=== PATIENT | male | born 1950 | race Caucasian/White ===

== ENCOUNTER → 2017-05-17 | Outpatient (CLI) | payer OTHER ==
--- NOTE | 2017-05-17 21:16 | US ---
EXAMINATION TYPE: US carotid duplex BILAT DATE OF EXAM: 05/17/2017 COMPARISON: NONE CLINICAL HISTORY: R20.2 Paresthesia of skin. Trauma to face while serving in [place] 1968, facial num bness EXAM MEASUREMENTS: RIGHT: Peak Systolic Velocity (PSV) cm/sec ----- Right CCA: 60.0 ----- Right ICA: 62.2 ----- Right ECA: 151.2 ICA/CCA ratio: 1.0 RIGHT: End Diastole cm/sec ----- Right CCA: 16.0 ----- Right ICA: 13.8 ----- Right ECA: 20.4 LEFT: Peak Systolic Velocity (PSV) cm/sec ----- Left CCA: 74.3 ----- Left ICA: 68.6 ----- Left ECA: 95.2 ICA/CCA ratio: 0.9 LEFT: End Diastole cm/sec ----- Left CCA: 17.1 ----- Left ICA: 20.6 ----- Left ECA: 12.8 VERTEBRALS (direction of flow): Right Vertebral: Antegrade Left Vertebral: Antegrade Mild to moderate intimal wall changes are noted at bilateral carotid bifurcation, but PSV is wnl bila terally. IMPRESSION: 1. Jfpz-bz-lahchike atherosclerotic changes with no significant hemodynamic flow.
== END | disposition home or self-care (01) ==
LOC: RADUSWWP 14:37
PROVIDERS: ATTEND Family Medicine
DX: I65.23 Occlusion and stenosis of bilateral carotid arteries (principal)
CPT/HCPCS: 93880

== ENCOUNTER 2018-02-12 09:09 | Emergency (ER) | payer OTHER ==
[2018-02-12] MEDS ORDERED: MECLIZINE 12.5 MG TAB PO STA (09:42)
[2018-02-12] MEDS ORDERED: SODIUM CHLORIDE 0.9% 1,000 ML IV STA (09:42)
[2018-02-12] MEDS ORDERED: METOCLOPRAMIDE 5 MG/ML 2 ML VIAL IVP STA (09:43)
--- NOTE | 2018-02-12 09:46 | ED ---
Dizziness HPI - General Chief Complaint: Dizziness Stated Complaint: Dizziness Time Seen by Provider: 02/12/18 09:20 Source: patient, RN notes reviewed Mode of arrival: ambulatory Limitations: physical limitation - History of Present Illness Initial Comments: This a 67-year-old male presents emergency Department chief complaint of dizziness. Patient states he woke up with dizziness on Saturday and has progressively gotten worse. Patient states today is the worst. Patient states that on Saturday he could not even walk without pain on the all fours. He states he felt very unsteady. He states the room spins in circles. Patient states that he believes this is from getting up quickly states he was leaning on his belly and jumped up and states that this is when the dizziness started. Patient denies chest pain, headache, fever, chills, neck pain, shortness breath , focal weakness. He didn't admit to some nausea and had episodes of vomiting with the dizziness. Patient states that he has had dizziness in the past and saw Dr. Tadeo for this. They told that he may have had a stroke in the past. Patient denies any blurred vision. Patient states he feels much better just sitting still. - Related Data Home Medications Medication Instructions Recorded Confirmed Aspirin EC [Ecotrin Low Dose] 81 mg PO HS 02/12/18 02/12/18 Loratadine 10 mg PO HS 02/12/18 02/12/18 Previous Rx's Medication Instructions Recorded Meclizine [Antivert] 25 mg PO TID PRN #15 tab 02/12/18 Ondansetron Odt [Zofran Odt] 4 mg PO Q8HR PRN #10 tab 02/12/18 Allergies Allergy/AdvReac Type Severity Reaction Status Date / Time UNKNOWN ANTIBIOITIC Allergy Unknown Uncoded 02/12/18 09:31 Review of Systems ROS Statement: Those systems with pertinent positive or pertinent negative responses have been documented in the HPI. ROS Other: All systems not noted in ROS Statement are negative. Past Medical History Past Medical History: No Reported History History of Any Multi-Drug Resistant Organisms: None Reported Past Surgical History: Orthopedic Surgery Additional Past Surgical History / Comment(s): right hand sx carpal tunnel, right knee sx Past Psychological History: No Psychological Hx Reported Smoking Status: Never smoker Past Alcohol Use History: None Reported Past Drug Use History: None Reported General Exam Limitations: physical limitation General appearance: alert, in no apparent distress Head exam: Present: atraumatic, normocephalic, normal inspection Eye exam: Present: normal appearance, PERRL, EOMI. Absent: scleral icterus, conjunctival injection, periorbital swelling ENT exam: Present: normal exam, mucous membranes moist Neck exam: Present: normal inspection, full ROM. Absent: tenderness, meningismus, lymphadenopathy Respiratory exam: Present: normal lung sounds bilaterally. Absent: respiratory distress, wheezes, rales, rhonchi, stridor Cardiovascular Exam: Present: regular rate, normal rhythm, normal heart sounds. Absent: systolic murmur, diastolic murmur, rubs, gallop, clicks GI/Abdominal exam: Present: soft, normal bowel sounds. Absent: distended, tenderness, guarding, rebound, rigid Neurological exam: Present: alert, oriented X3, CN II-XII intact, reflexes normal, other (finger to nose intact bilat). Absent: motor sensory deficit Skin exam: Present: warm, dry, intact, normal color. Absent: rash Course Vital Signs 02/12/18 02/12/18 09:10 10:30 Temperature 97.8 F Pulse Rate 69 72 Respiratory 16 16 Rate Blood Pressure 188/94 167/104 O2 Sat by Pulse 98 96 Oximetry - Reevaluation(s) Reevaluation #1: 02/12/18 11:44 Patient was able to ambulate to the bathroom without difficulty, dizziness has improved. EKG Findings - EKG Comments: EKG Findings:: EKG performed at 10:06 normal sinus rhythm with a rate of 67 AR 150 QRS 94 QT/QTC 4:30/444 Medical Decision Making - Medical Decision Making 67-year-old male presented for dizziness that started on Saturday. Patient had lab work, EKG, CT which are all unremarkable. Patient does feel improved after Antivert and Reglan emergency department. Patient symptoms more consistent with vertigo. Patient we discharged on Antivert and follow-up with PCP. - Lab Data Result diagrams: 02/12/18 09:58 02/12/18 09:58 Lab Results 02/12/18 02/12/18 02/12/18 Range/Units 09:58 09:58 09:58 WBC 7.5 (3.8-10.6) k/uL RBC 4.96 (4.30-5.90) m/uL Hgb 16.0 (13.0-17.5) gm/dL Hct 46.4 (39.0-53.0) % MCV 93.6 (80.0-100.0) fL MCH 32.3 (25.0-35.0) pg MCHC 34.4 (31.0-37.0) g/dL RDW 13.2 (11.5-15.5) % Plt Count 255 (150-450) k/uL Neutrophils % 80 % Lymphocytes % 11 % Monocytes % 6 % Eosinophils % 1 % Basophils % 0 % Neutrophils # 5.9 (1.3-7.7) k/uL Lymphocytes # 0.8 L (1.0-4.8) k/uL Monocytes # 0.5 (0-1.0) k/uL Eosinophils # 0.1 (0-0.7) k/uL Basophils # 0.0 (0-0.2) k/uL PT 10.0 (9.0-12.0) sec INR 1.0 (<1.2) Sodium 141 (137-145) mmol/L Potassium 4.4 (3.5-5.1) mmol/L Chloride 102 (98-107) mmol/L Carbon Dioxide 25 (22-30) mmol/L Anion Gap 14 mmol/L BUN 12 (9-20) mg/dL Creatinine 0.82 (0.66-1.25) mg/dL Est GFR (CKD-EPI)AfAm >90 (>60 ml/min/1.73 sqM) Est GFR (CKD-EPI)NonAf >90 (>60 ml/min/1.73 sqM) Glucose 130 H (74-99) mg/dL Calcium 9.0 (8.4-10.2) mg/dL Magnesium 2.0 (1.6-2.3) mg/dL Total Bilirubin 0.7 (0.2-1.3) mg/dL AST 36 (17-59) U/L ALT 40 (21-72) U/L Alkaline Phosphatase 96 (38-126) U/L Troponin I (0.000-0.034) ng/mL Total Protein 7.5 (6.3-8.2) g/dL Albumin 4.1 (3.5-5.0) g/dL 02/12/18 Range/Units 09:58 WBC (3.8-10.6) k/uL RBC (4.30-5.90) m/uL Hgb (13.0-17.5) gm/dL Hct (39.0-53.0) % MCV (80.0-100.0) fL MCH (25.0-35.0) pg MCHC (31.0-37.0) g/dL RDW (11.5-15.5) % Plt Count (150-450) k/uL Neutrophils % % Lymphocytes % % Monocytes % % Eosinophils % % Basophils % % Neutrophils # (1.3-7.7) k/uL Lymphocytes # (1.0-4.8) k/uL Monocytes # (0-1.0) k/uL Eosinophils # (0-0.7) k/uL Basophils # (0-0.2) k/uL PT (9.0-12.0) sec INR (<1.2) Sodium (137-145) mmol/L Potassium (3.5-5.1) mmol/L Chloride (98-107) mmol/L Carbon Dioxide (22-30) mmol/L Anion Gap mmol/L BUN (9-20) mg/dL Creatinine (0.66-1.25) mg/dL Est GFR (CKD-EPI)AfAm (>60 ml/min/1.73 sqM) Est GFR (CKD-EPI)NonAf (>60 ml/min/1.73 sqM) Glucose (74-99) mg/dL Calcium (8.4-10.2) mg/dL Magnesium (1.6-2.3) mg/dL Total Bilirubin (0.2-1.3) mg/dL AST (17-59) U/L ALT (21-72) U/L Alkaline Phosphatase (38-126) U/L Troponin I <0.012 (0.000-0.034) ng/mL Total Protein (6.3-8.2) g/dL Albumin (3.5-5.0) g/dL Disposition Clinical Impression: Vertigo Disposition: HOME SELF-CARE Condition: Stable Instructions: Vertigo (ED) Additional Instructions: Please return to the Emergency Department if symptoms worsen or any other concerns. Prescriptions: Meclizine [Antivert] 25 mg PO TID PRN #15 tab PRN Reason: Vertigo Ondansetron Odt [Zofran Odt] 4 mg PO Q8HR PRN #10 tab PRN Reason: Nausea Is patient prescribed a controlled substance at d/c from ED?: No Referrals: [facility],Clinic [Primary Care Provider] - 1-2 days Time of Disposition: 11:46
[2018-02-12 10:14] LABS: Basophils % (A) 0 %; Eosinophils # (A) 0.1 k/uL (0-0.7); Eosinophils % (A) 1 %; HCT 46.4 % (39.0-53.0); Lymphocytes # (A) 0.8 k/uL (1.0-4.8); Lymphocytes % (A) 11 %; MCH 32.3 pg (25.0-35.0); MCHC 34.4 g/dL (31.0-37.0); MCV 93.6 fL (80.0-100.0); Mean Platelet Volume 6.5; Monocytes # (A) 0.5 k/uL (0-1.0); Monocytes % (A) 6 %; Neutrophils # (A) 5.9 k/uL (1.3-7.7); Neutrophils % (A) 80 %; Platelet Count 255 k/uL (150-450); RBC 4.96 m/uL (4.30-5.90); RDW 13.2 % (11.5-15.5); WBC 7.5 k/uL (3.8-10.6)
--- NOTE | 2018-02-12 10:28 | XR ---
EXAMINATION TYPE: XR chest 2V DATE OF EXAM: 02/12/2018 COMPARISON: 07/08/2013 HISTORY: Shortness of breath TECHNIQUE: Frontal and lateral views of the chest are obtained. FINDINGS: Scattered senescent parenchymal changes noted. Hyperinflation compatible with COPD. Stable granuloma right lower lobe. No evidence for infiltrate. No evidence for atelectasis. Heart size is stable. Mediastinal structures are stable and grossly unremarkable. No evidence for hilar prominence. Degenerative changes dorsal spine. IMPRESSION: 1. No evidence for acute pulmonary disease.
--- NOTE | 2018-02-12 10:32 | CT ---
EXAMINATION TYPE: CT brain wo con DATE OF EXAM: 02/12/2018 COMPARISON: NONE INDICATION: Dizziness for 3 days DLP: 1213 mGycm, Automated exposure control for dose reduction was used. CONTRAST: None CT of the brain is performed utilizing 3 mm thick sections through the posterior fossa and 3 mm thick sections through the remaining calvarium. Study is performed within 24 hours of arrival to the hosp ital. No abnormal hyperdensity is present to suggest an acute intracranial hemorrhage. No mass lesion is evident. No acute infarcts are evident. Minimal periventricular white matter hypodensity is present, likely on the basis of chronic white matter ischemic change. Ventricles and sulci are appropriate for the patient age. Paranasal sinuses and mastoid air cells within the [id number] are clear. IMPRESSIONS: 1. Very minimal chronic appearing white matter ischemic change. 2. No acute intracranial process.
[2018-02-12 10:43] LABS: ALT 40 U/L (21-72); AST 36 U/L (17-59); Albumin 4.1 g/dL (3.5-5.0); Alkaline Phosphatase 96 U/L (38-126); Anion Gap 14 mmol/L; Blood Urea Nitrogen 12 mg/dL (9-20); Carbon Dioxide 25 mmol/L (22-30); Chloride 102 mmol/L (98-107); Glucose 130 mg/dL (74-99); Potassium 4.4 mmol/L (3.5-5.1); Sodium 141 mmol/L (137-145); Total Bilirubin 0.7 mg/dL (0.2-1.3); Total Protein 7.5 g/dL (6.3-8.2)
[2018-02-12 11:59] VITALS: BP 138/84; PULSE 73; RESP 18; TEMP 97
== END 2018-02-12 11:59 | disposition home or self-care (01) ==
LOC: EC 09:09
DX: R42 Dizziness and giddiness (principal); Z79.82 Long term (current) use of aspirin; Z79.899 Other long term (current) drug therapy; Z88.1 Allergy status to other antibiotic agents
CPT/HCPCS: 36415; 93005; 80053; 83735; 84484; 85025; 85610; 71046; 70450; 99284; 96374; 96361; J2765

== ENCOUNTER → 2024-02-07 | Outpatient (CLI) | payer OTHER ==
--- NOTE | 2024-02-07 12:21 | FL ---
Exam Date: 02/07/2024 11:21 AM. Modified barium swallow for dysphagia. Consistencies administered: Various consistency of barium. Fluoro time: 1 minute 6 seconds No images were sent to PACS. Please see speech pathology report. DAP: Not reported mGym2 Gycm2
== END | disposition home or self-care (01) ==
LOC: RADFLMAIN 10:57
PROVIDERS: ATTEND Family Medicine
DX: R13.10 Dysphagia, unspecified (principal); R09.A2 Foreign body sensation, throat
CPT/HCPCS: 74230

== ENCOUNTER → 2024-03-06 | Outpatient (CLI) | payer OTHER ==
--- NOTE | 2024-03-08 21:26 | MR ---
EXAMINATION TYPE: MR cervical spine wo con DATE OF EXAM: 03/06/2024 6:46 PM CLINICAL INDICATION:Male, 74 years old with history of M54.2 CERVICALGIA; PHH, Whole body numbness COMPARISON: 07/22/2013 TECHNIQUE: Multi planar, multi sequence imaging was performed utilizing: T1-weighted, T2-weighted, an d turbo inversion recovery imaging of the cervical spine. IV Contrast: cc (none if empty) FINDINGS: Alignment: The cervical vertebral bodies have preserved heights. Subtle grade 1 anterolisthesis of C7 on T1. Bones: Osteophytes and disc space narrowing most pronounced at the C5-C7 vertebral levels. Cord: The spinal cord is unremarkable with regards to their signal intensity and morphology. Discs: Intervertebral disc signal is maintained. C2-C3: No significant disc pathology. The spinal canal is patent. No neural foraminal stenosis. C3-C4: No significant disc pathology. The spinal canal is patent. Bilateral facet and uncovertebral joint arthropathy are present with mild bilateral neural foraminal stenosis. C4-C5: A disc osteophyte complex is present with mild spinal canal stenosis. Bilateral facet and unc overtebral joint arthropathy are present with moderate bilateral neural foraminal stenosis. C5-C6: No significant disc pathology. The spinal canal is patent. Bilateral facet and uncovertebral joint arthropathy are present with severe right and moderate left neural foraminal stenosis. C6-C7: No significant disc pathology. The spinal canal is patent. Bilateral facet and uncovertebral joint arthropathy are present with severe bilateral neural foraminal stenosis. C7-T1: No significant disc pathology. The spinal canal is patent. No neural foraminal stenosis. Other: None. IMPRESSION: 1. No evidence for disc herniation or significant spinal canal stenosis. 2. Multilevel disc degeneration with associated osteoarthritic changes worse at C5-C7 with moderate l eft C5-C6, severe right C5-C6, severe bilateral C6-C7 neural foraminal stenosis. 3. Subtle grade 1 anterolisthesis of C7 on T1.
== END | disposition home or self-care (01) ==
LOC: RADMRIMAIN 17:59
PROVIDERS: ATTEND Family Medicine
DX: M48.02 Spinal stenosis, cervical region (principal); M99.71 Connective tissue and disc stenosis of intervertebral foramina of cervical region; M50.322 Other cervical disc degeneration at C5-C6 level
CPT/HCPCS: 72141

== ENCOUNTER → 2024-09-25 | Outpatient (CLI) | payer OTHER | END | disposition home or self-care (01) | LOC: LABPAT 09:23 | PROVIDERS: ATTEND Orthopaedic Surgery | DX: M50.00 Cervical disc disorder with myelopathy, unspecified cervical region (principal); M47.22 Other spondylosis with radiculopathy, cervical region | CPT/HCPCS: 86850; 86900; 86901; 87070 ==

== ENCOUNTER 2024-10-02 10:42 | Day surgery (SDC) | payer OTHER ==
--- NOTE | 2024-10-01 16:03 | P.HPOR ---
History of Present Illness H&P Date: 09/25/24 .D:Date: 09/25/24 : 09:12am .T:Title: Spine Surgery Clinical and Risk Review ATTENDING ATTESTATION: I have personally reviewed the history, imaging studies, and physical examination findings for Ibis, a 74-year-old male presenting with cervical pain and progressive neurological symptoms. The patient demonstrates significant cervical spine pathology on imaging, including moderate to severe spondylotic changes C5-C7, multilevel foraminal stenosis (severe at C5-6 and C6-7), and grade 1 anterolisthesis C7-T1. Medical Necessity: The patient presents with objective findings of cervical myelopathy and radiculopathy, evidenced by diffuse upper extremity weakness, hyperreflexia with positive Pritchett's sign, and dermatomal sensory deficits. Without surgical intervention, the patient faces high risk of progressive neurological deterioration and potential paralysis. Surgical Rationale: Based on the severity of imaging findings, progressive neurological deficits, and failed conservative management, I concur with the recommendation for C4-C7 Anterior Cervical Discectomy and Fusion. This procedure is the most appropriate surgical intervention to address the patient's multilevel pathology, decompress the neural elements, and stabilize the cervical spine. The patient has been thoroughly counseled regarding surgical risks and benefits, and demonstrates understanding of the proposed procedure. I agree with the assessment and plan as documented below. Gaurang Stovall DO ------ Ibis is a 74 yo male who is presenting for evaluation of cervical pain. It was my pleasure to have seen and examined Ibis. In our visit today we have had a chance to go over subjective complaints, physical examination findings and treatments including the natural course history without intervention and various interventional options. 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: 4-/5 bilaterally * Lower extremities: 5/5 throughout Reflexes: * Biceps: 3+ bilaterally Brachioradialis: 3+ bilaterally Triceps: 2+ bilaterally Positive Pritchett's sign bilaterally No clonus or Babinski Sensory: * C5-C7 dermatomal deficits with paresthesias in bilateral upper extremities Diminished light touch and proprioception in bilateral hands Functional: * Impaired fine motor dexterity in bilateral hands Independent ambulation with normal gait pattern Negative Romberg No balance deficits I have explained to the patient that as their condition progresses it will cause further neurological deficits and eventual paralysis. Based on the patients imaging, physical exam, and the rapid progression and disabling nature of their symptoms, at this time I recommend surgery in the form or a: C4-C7 Anterior Cervical Discectomy and Fusion. I discussed the risk and benefits of this procedure at length with Ibis. The patient agreed to considered pursuing the procedure abovementioned. Prior to surgery, she should follow up with her PCP (Cardio, ID, IM etc) for clearance. Questions were invited and answered, and the patient wishes to proceed as outlined below. ASSESSMENT: 1. 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 Grade 1 anterolisthesis C7-T1 3. Bilateral cervical radiculopathy with progressive weakness 4. Cervical myelopathy symptoms Currently, I am recommendin.C4-C7 Anterior Cervical Discectomy and Fusion 2.Follow up with PCP for surgical clearance 3.Review of surgical risks and benefits as well as an educational packet on the proposed surgical procedure. Risks: All surgical procedures come with inherent risks, including those related to positioning, anesthesia, intraoperative findings, and postoperative complications. It is important to understand that surgery does not come with any guarantee of a successful outcome as complications and adverse events are always possible. The patient was given a handout in office today discussing the surgical procedure and risks associated with the intervention, both of which were discussed with the patient. These risks include but are not limited to the following: * Experiencing same, different or even worse symptoms in back, neck, arms, or legs compared to before surgery. Requiring further surgery or other forms of treatment presently or at some time in the future at same or other levels of the intended spine surgery. On an extreme but fortunately relatively rare basis severe complication such as blindness, stroke, heart attack, temporary and/or permanent nerve injury, paralysis, coma, or may occur, sometimes without known explanation. Surgical complications may include but are not limited to risk of infection, fluid accumulation in the surgical dissection site, including a seroma or hematoma, that requires additional surgery, wound drainage, bleeding, new numbness or weakness, vision changes/loss, spinal fluid leakage, non-healing and/or infected incision, headaches, difficulty or inability to swallow, hoarseness, hemopneumothorax, pneumothorax, impotence, retrograde ejaculation, vaginal dryness; injury to nerves, spinal cord, blood vessels, lymphatics or other vital organs (i.e., bowel injury, injury to the great vessels); heterotopic bone formation; complications related to the hardware such as screws, rods, cages including misplaced hardware, device failure, instrumentation at the wrong spine level, hardware fracture/breakage, or hardware loosening; vertebral failure of the spinal column above or below the newly placed hardware; retained surgical instrumentations or devices and the need for further surgery. * Medical risks of the planned spine surgery include but are not limited to generalized Infections to the whole body or local areas outside of the surgical site (sepsis), heart attack, bleeding, anaphylaxis, meningitis, seizure, epilepsy, hearing loss, burn ley, laceration of the head or other areas of the body, bruising, hypersensitivity of the skin, bladder over distension; allergic reaction; shoulder injury related to positioning; fat, blood and air clots to other areas of the body like heart, lungs, brain; failu re of internal organs such as lungs, kidneys, liver and excessive bleeding. If blood transfusions are necessary, note that transfusions may cause intolerance reactions such as anaphylaxis or other complex reactions. Despite best efforts, the results of spine surgery might not heal in terms of bone, soft tissues such as skin, fascia, ligaments, and joints. Additionally, in order to achieve best possible results, spine surgery may be carried out beyond the initially planned levels and involve decompression, fusion including insertion of hardware at levels other than the original intended area of surgical interest change some portions of the procedure in order to ensure the best possible outcomes. With spine surgery and spinal fusion, there are different off label uses of instrumentation (devices, implants and hardware) as well as biological substances (bone morphogenic proteins, demineralized bone matrix) as well as using extra bone from allograft sources (i.e. cadaver bone) or autograft (iliac crest bone, ribs, or the spine itself). The patient has been given information about these practices and their inherent risks and benefits. We have discussed at length the impact of tobacco, smoking and nicotiene has on healing, specifically in spine surgery and fusion surgery. This can increase you risks of non-healing up to 300% some studies show. We have discussed that the patient has been tobacco/smoke/nicotiene free for the past 6 weeks and will commit to at least 6 weeks after surgery of cessation of smoking and or any tobacco or nicotiene use. They have agreed to this and contest that they have been tobacco/nicotiene free for the past 6 weeks. The patient has had a chance to review all the listed information, has been given print outs detailing this information, and has had all his/her questions answered to their satisfaction. It was my pleasure to have seen and examined Ibis. In our visit today we have had a chance to go over my understanding of our patient's current condition, the natural course history without intervention and various interventional options. Questions were invited and answered, and the patient wishes to proceed as outlined above. I have seen and examined the patient for 25 minutes and we have spent more than 50% of the time in repeat and detailed counseling about the patient's condition, its natural course history with out and as much as can be predicted with surgery and re-review of various surgical treatment options. In conclusion, Ibis requested we proceed with the above suggested surgery and are willing to accept risks and limitations of the suggested surgery as nature of the disease process and our best attempts at treatment for the condition. Thank you again for allowing us to be part of your patient's care. Please don't hesitate to contact me if you have any further questions. Past Medical History Past Medical History: No Reported History Additional Past Medical History / Comment(s): neck pain several years since injury in [place] History of Any Multi-Drug Resistant Organisms: None Reported Past Surgical History: Orthopedic Surgery Additional Past Surgical History / Comment(s): Rt. hand growth removal, Rt. knee arthroscopy, Bilat. CTR, Lt. bone spur removed, nasal surgery Past Anesthesia/Blood Transfusion Reactions: No Reported Reaction Smoking Status: Never smoker - Past Family History Brother(s) Family Medical History: Diabetes Mellitus, Dialysis Sister(s) Additional Family Medical History / Comment(s): 3 sisters have (1 in 40's, 2 in 60's) Medications and Allergies Home Medications Medication Instructions Recorded Confirmed Type Aspirin EC [Ecotrin Low Dose] 81 mg PO DAILY 02/12/18 09/29/24 History Loratadine 10 mg PO HS 02/12/18 09/29/24 History Alpha Lipoic Acid 200 mg PO DAILY 09/29/24 09/29/24 History Calcium Carb/Mag Ox/Zinc Sulf 1 tab PO DAILY 09/29/24 09/29/24 History [Mtf-Jui-Rzvf 334-134-5 mg Tab] Cholecalciferol [Vitamin D3 (25 1 tab PO DAILY 09/29/24 09/29/24 History Mcg = 1000 Iu)] Cyanocobalamin (Vitamin B-12) 1 tab PO DAILY 09/29/24 09/29/24 History [Vitamin B-12] Allergies Allergy/AdvReac Type Severity Reaction Status Date / Time UNKNOWN ANTIBIOITIC Allergy Unknown Uncoded 09/29/24 12:06 Physical Examination Osteopathic Statement: *. No significant issues noted on an osteopathic structural exam other than those noted in the History and Physical/Consult.
[~2024-10-02 10:42] MED LIST: HYDROmorphone 0.5 MG/0.5 ML SYRINGE IVP PRN; MIDAZOLAM 2 MG/2 ML VIAL IV PRN; TRANEXAMIC 1,000 MG/100ML-NACL 1,000 MG in SALINE 1 100ML.BAG IVPB PRN
[2024-10-02] MEDS: ACETAMINOPHEN TAB 500 MG TAB PO PRN (11:36)
[2024-10-02] MEDS: GABAPENTIN 300 MG CAP PO PRN (11:36)
[2024-10-02] MEDS: LACTATED RINGERS 1,000 ML IV SCH (11:36)
[2024-10-02] MEDS: ONDANSETRON 4 MG/2 ML VIAL IVP PRN (11:37)
[2024-10-02] MEDS: DEXAMETHASONE SOD PHOSPHATE 4 MG/ML 1 ML VIAL IVP STA (11:38)
[2024-10-02] MEDS: IV FLUID CONTINUATION 1,000 ML IV ONE ×2 (11:41→18:17)
--- NOTE | 2024-10-02 15:45 | FL ---
EXAMINATION TYPE: FL guidance operating room, XR cervical spine limited DATE OF EXAM: 10/02/2024 CLINICAL HISTORY: Neck pain. TECHNIQUE: Fluoroscopy. Intraoperative limited views cervical spine. COMPARISON: Outside cervical spine x-ray June 22, 2024. FINDINGS: Fluoroscopic guidance was provided during cervical spine surgical procedure performed by Anna Marie Stovall. A total of 30.7 seconds of fluoroscopic time was utilized during the procedure and 8 spot images was acquired. Total dose area product (DAP) in uGy*m?, mGy*cm? (or similar: 0.9830. Intraoperative images acquired show placement of fusion devices anteriorly at C4-C5, C5-C6, and C6-C7 levels. IMPRESSION: As Above. [facility], , 10/02/2024 3:43 PM
[2024-10-02] MEDS ORDERED: MAGNESIUM HYDROXIDE 2,400 MG/30 ML CUP PO PRN (15:54)
[2024-10-02] MEDS ORDERED: CYCLOBENZAPRINE 5 MG TAB PO PRN (15:54)
[2024-10-02] MEDS ORDERED: HYDROcodone/APAP 5-325MG 1 EACH TAB PO PRN (15:54)
[2024-10-02] MEDS ORDERED: HYDROmorphone 1 MG/ML 1 ML SYRINGE IVP PRN (15:54)
[2024-10-02] MEDS ORDERED: SENNOSIDES-DOCUSATE SODIUM 1 EACH TAB PO PRN (15:54)
[2024-10-02] MEDS ORDERED: HYDROcodone/APAP 10-325MG 1 EACH TAB PO PRN (15:54)
[2024-10-02] MEDS ORDERED: ONDANSETRON 4 MG/2 ML VIAL IVP PRN (15:54)
[2024-10-02] MEDS ORDERED: HYDROmorphone 0.5 MG/0.5 ML SYRINGE IVP PRN (15:54)
[2024-10-02] MEDS: PHENYLEPHRINE-0.9% NACL SYG 1,000 MCG/10 ML SYRINGE IVP STA (16:03)
--- NOTE | 2024-10-02 16:05 | P.OP ---
Date of Procedure: 10/02/24 Preoperative Diagnosis: 1. 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 UE RADICULOPATHY 3. UE WEAKNESS 4. NECK PAIN Postoperative Diagnosis: 1. 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 UE RADICULOPATHY 3. UE WEAKNESS 4. NECK PAIN Procedure(s) Performed: 1. C4-5 ANTERIOR CERVICAL ARTHRODESIS 2. C5-6 ANTERIOR CERVICAL ARTHRODESIS 3. C6-7 ANTERIOR CERVICAL ARTHRODESIS 4. C4-7 ANTERIOR CERVICAL INSTRUMENTATION 5. C4-5, C5-6, C6-7 INSERTION OF BIOMECHANICAL DEVICES, CAGES x3 USE OF IONM USE OF IO MICROSCOPE Implants: -BAYRON SECURE C -14, 12, 16MM SCREW PLATE -MAGNATOS, AUTOGRAFT Anesthesia: GETA Surgeon: Gaurang Stovall Exercise Instruct #1: Silvino Hernandez (WAS PRESENT AND ASSISTED WITH ALL ASPECTS OF THE CASE FROM POSITION TO DRESSING PLACEMENT) Estimated Blood Loss (ml): 50 IV fluids (ml): 1,200 Urine output (ml): 250 Pathology: none sent Condition: stable Disposition: PACU Indications for Procedure: Ibis is a 74 yo male who is presenting for evaluation of cervical pain. It was my pleasure to have seen and examined Ibis. In our visit today we have had a chance to go over subjective complaints, physical examination findings and treatments including the natural course history without intervention and various interventional options. The patients eecent cervical X-rays and MRI reviewed, showing: - Moderate to severe spondylotic changes C5-C7 - Multilevel foraminal stenosis, severe at C5-6 and C6-7 - Grade 1 anterolisthesis C7-T1 - Significant disc height loss C4-T1 -Severe central stenosis C4-7 -Facet arthrosis with ligamental stenosis and degenerative HNP C4-7 On physical exam Ibis demonstrates: Motor Strength: * Upper extremities show diffuse weakness (4/4- throughout) * Shoulder abduction: 4/5 bilaterally Biceps/Triceps: 4/5 bilaterally Wrist extension: 4-/5 bilaterally Hand intrinsics and carry out clerk: 4-/5 bilaterally * Lower extremities: 5/5 throughout Reflexes: * Biceps: 3+ bilaterally Brachioradialis: 3+ bilaterally Triceps: 2+ bilaterally Positive Pritchett's sign bilaterally No clonus or Babinski Sensory: * C5-C7 dermatomal deficits with paresthesias in bilateral upper extremities Diminished light touch and proprioception in bilateral hands Functional: * Impaired fine motor dexterity in bilateral hands Independent ambulation with normal gait pattern Negative Romberg No balance deficits I have explained to the patient that as their condition progresses it will cause further neurological deficits and eventual paralysis. Based on the patients imaging, physical exam, and the rapid progression and disabling nature of their symptoms, at this time I recommend surgery in the form or a: C4-C7 Anterior Cervical Discectomy and Fusion. I discussed the risk and benefits of this procedure at length with Ibis. The patient agreed to considered pursuing the procedure abovementioned. Prior to surgery, she should follow up with her PCP (Cardio, ID, IM etc) for clearance. Questions were invited and answered, and the patient wishes to proceed as outlined below. ASSESSMENT: 1. 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 Grade 1 anterolisthesis C7-T1 3. Bilateral cervical radiculopathy with progressive weakness 4. Cervical myelopathy symptoms Currently, I am recommendin.C4-C7 Anterior Cervical Discectomy and Fusion Description of Procedure: C4-7 ACDF The patient was seen and examined in the preoperative area. All preoperative protocols were followed. Informed consent was obtained, risks and benefits of the procedure were discussed at length. Risks including bleeding infection emma ge to the surrounding tissue and risk of reoperation were discussed with the patient. Risk of anesthesia up to and including was discussed with the patient. These are outlined in the risk review. They were willing to accept these risks and all the risks of surgery. The patient was given a weight-based dose of antibiotics in the form of 2 g Ancef. The patient was seen and evaluated by the anesthesia team who deemed them fit for surgery. The site was marked, the patient was willing to proceed with the procedure. The patient was transferred to the operative suite by the Department of anesthesia. They were then drifted off to sleep by the department anesthesia and GETA was performed. The patient tolerated this well. Rodríguez catheter was placed by nursing staff, a-traumatically. Once confirmation of lines and ventilation the patient was transferred to a Supine Tal table very carefully. All bony prominences including wrists, elbows, axilla, chest, hips, and thighs, and feet were padded very well. Special attention was paid to the genitalia, and these were padded accordingly. SCDs were placed on bilateral lower extremities and were connected. Arms were well padded and placed at their side thumbs up. Once in position, again we confirmed good ventilation capabilities and that lines were running appropriately. The patients Cervical spine was then exposed. 1010s were placed outlining the incision site. Standard alcohol was used to clean the incision site and allowed to dry. C-arm was used to bio-hilario the patient and confirm level for incision which was marked with a skin marker. Operative briefing was performed with all teams and everyone in agreement to proceed. The patient was then prepped and draped in a normal sterile fashion. Timeout was then performed, and all parties agreed with the procedure to be performed. Transverse skin incision was then made on the right side of the patient's neck 3 cm and dissection taken down to the platysma which was split transversely. Sub platysma flap was made, and interval identified between SCM and medial structures. Omohyoid was visualized and protected. Blunt dissection taken down to the anterior cervical fascia which was identified. Blunt probe was then placed and lateral image taken which confirmed levels for operation. These levels were then marked with a bovi. Subperiosteal dissection of the longissimus muscles were then done over these levels identifying uncovertebral joints bilaterally. Retractor was then placed deep to these muscles and held in place with a bed arm. Starting at C6-7, [place] pins were placed into C6 and C7 and gentle distraction taken out over the levels. Jose Alejandro rongeur used to remove disc material. Operating microscope brought in for visualization. Complete discectomy performed at this level with curette, rongure and pituitary. High speed maría used to remove osteophytes anteriorly and posteriorly until PLL was identified. 6-0 up curette then used to identify the canal and resect the PLL. 2-0 and 3-0 Kerrison used then to remove PLL and disc herniation and performed b/l foraminotomies. Once good decompression was accomplished, meticulous hemostasis was performed. Sizers were then placed under lateral fluoroscopy until the desired height and lordosis. Cage was then selected, packed with autograft and allograft and placed under lateral imaging. Once in good position it was tested and stable. Motors run before and after cage placement were stable. The wound was irrigated, and autograft placed lateral to the cage anteriorly for fusion. [place] pin was then removed from C7 and placed into C5. Gentle distraction taken out over C5-6 now. Complete discectomy done at C5-6 as described including decompression, b/l foraminotomies and PLL resection. Burring of endplates was minimal, osteophytes removed as described. Spacers were then sized and placed under lateral imaging. Cage selected, packed with graft and placed under lateral images. Once in position, meticulous hemostasis performed, and motors remained stable before and after cage placement. AP image confirmed good placement of cages. Wound was irrigated. [place] pin was then removed from C6 and placed into C4. Gentle distraction taken out over C4-5 now. Complete discectomy done at C4-5 as described including decompression, b/l foraminotomies and PLL resection. Burring of endplates was minimal, osteophytes removed as described. Spacers were then sized and placed under lateral imaging. Cage selected, packed with graft and placed under lateral images. Once in position, meticulous hemostasis performed, and motors remained stable before and after cage placement. AP image confirmed good placement of cages. Wound was irrigated. We then proceeded to anterior instrumentation. Screw plate constucts were drilled and measured and then screws placed. These had good bite. All locking mechanisms were set, and all screws had good purchase. Final AP and lateral images taken confirmed good placement of hardware and good reduction and latter day of height. The wound was then irrigated copiously with NSS. Surgicel placed deep in the wound. A deep drain placed out a separate incision and sewed into place. Layered closure then performed with 3-0 Vicryl in the platysma and subQ tissue. 4-0 Strata fix in the subcuticular tissue. The wound was then cleaned, and dried and skin glue placed. Once glue dried on Opifoam was placed. The patient was then transferred back to their hospital bed a-traumatically. The drain continued to hold suction. They were placed in a soft collar. They were then awakened by the department of anesthesia having tolerated the procedure well without complications.
[2024-10-02] MEDS: ACETAMINOPHEN TAB 325 MG TAB PO SCH (18:51)
[2024-10-03 08:19] VITALS: PULSE 85
[2024-10-03 09:25] LABS: Basophils # (A) 0.03 X 10*3/uL (0.00-0.10); Basophils % (A) 0.2 %; Eosinophils # (A) 0 X 10*3/uL (0.04-0.35); Eosinophils % (A) 0 %; HCT 40.5 % (39.6-50.0); HGB 13.6 g/dL (13.0-17.0); Lymphocytes # (A) 0.73 X 10*3/uL (0.90-5.00); Lymphocytes % (A) 4.8 %; MCH 32.4 pg (27.0-32.0); MCHC 33.6 g/dL (32.0-37.0); MCV 96.4 FL (80.0-97.0); Monocytes # (A) 1.28 X 10*3/uL (0.20-1.00); Monocytes % (A) 8.5 %; NRBC Per 100 WBC 0 X 10*3/uL (0.00-0.01); Neutrophils # (A) 12.92 X 10*3/uL (1.80-7.70); Neutrophils % (A) 85.8 %; Platelet Count 236 X 10*3/uL (140-440); RDW 13.2 % (11.5-14.5); WBC 15.07 X 10*3/uL (4.50-10.00)
[2024-10-03 10:16] LABS: Blood Urea Nitrogen 13.5 mg/dL (9.0-27.0); Calcium 8.3 mg/dL (8.7-10.3); Carbon Dioxide 23.3 mmol/L (21.6-31.8); Chloride 103 mmol/L (96-109); Glucose 126 mg/dL (70-110); Potassium 4.5 mmol/L (3.5-5.5); Sodium 137 mmol/L (135-145)
--- NOTE | 2024-10-03 10:43 | CT ---
EXAMINATION TYPE: CT cervical spine wo con DATE OF EXAM: 10/03/2024 8:10 AM COMPARISON: None. CLINICAL INDICATION: Male, 74 years old with history of s/p C3-C7 ACDF, POST SURGICAL NECK PAIN, Lung cancer screening, History of tobacco use. TECHNIQUE: CT of the cervical spine is performed in the axial plane at 2 mm thick sections. Reconstr ucted images in the coronal, and sagittal plane are reviewed on the computer. Contrast used: mL of , (none if empty) Oral contrast used: (none if empty) CT DLP: 522.2 mGycm, Automated exposure control for dose reduction was used. FINDINGS: Postsurgical subcutaneous air is present in the soft tissues of the neck adjacent to the lower cervic al spine from patient's recent anterior cervical surgery with placement of disc spacers at C4-5 C5-6 and C6-7. No acute fractures are evident. Vertebral body alignment is normal. Remaining disc heights are preserved. Mild narrowing of the C7-T1 disc space may be present. Vertebral body heights are preserved. No spinal canal stenosis is evident Mild foraminal narrowing from uncovertebral joint hypertrophy is present C4-5 bilaterally. More moder ate to severe foraminal stenosis present bilaterally C5-6 and C6-7. Drainage catheter is present in the prevertebral space on the right cervical thoracic junction region . No hematoma or other suspicious collections identified IMPRESSION: 1. Postsurgical changes lower cervical spine. No acute abnormality. 2. Chronic appearing foraminal narrowing lower cervical spine [facility], , 10/03/2024 10:41 AM
--- NOTE | 2024-10-03 13:14 | P.CONS ---
History of Present Illness - Reason for Consult Consult date: 10/03/24 Medical management - History of Present Illness History of present illness; patient is a 74-year-old gentleman with past medical history significant for who presented the hospital for elective C4-C7 Anterior Cervical Discectomy and Fusion. Patient has been following up outpatient with orthopedics for neck pain and upper extremity weakness. Patient had tried all conservative measures including therapy, pain medications but all measures fail. Discussion took place between orthopedic and patient and they decided to proceed with surgery which took place on 10/02. internal medicine team were consulted for medical management REVIEW OF SYSTEMS: CONSTITUTIONAL: No fever, no malaise, no fatigue. HEENT: No recent visual problems or hearing problems. Denied any sore throat. CARDIOVASCULAR: No chest pain, orthopnea, PND, no palpitations, no syncope. PULMONARY: No shortness of breath, no cough, no hemoptysis. GASTROINTESTINAL: No diarrhea, no nausea, no vomiting, no abdominal pain. NEUROLOGICAL: No headaches, no weakness, no numbness. HEMATOLOGICAL: Denies any bleeding or petechiae. GENITOURINARY: Denies any burning micturition, frequency, or urgency. MUSCULOSKELETAL/RHEUMATOLOGICAL: Denies any joint pain, swelling, or any muscle pain. ENDOCRINE: Denies any polyuria or polydipsia. The rest of the 14-point review of systems is negative. PHYSICAL EXAMINATION: GENERAL: The patient is alert and oriented x3, not in any acute distress. Well developed, well nourished. HEENT: Pupils are round and equally reacting to light. EOMI. No scleral icterus. No conjunctival pallor. Normocephalic, atraumatic. No pharyngeal erythema. No thyromegaly. Cervical collar seen, drain in place CARDIOVASCULAR: S1 and S2 present. No murmurs, rubs, or gallops. PULMONARY: Chest is clear to auscultation, no wheezing or crackles. ABDOMEN: Soft, nontender, nondistended, normoactive bowel sounds. No palpable organomegaly. MUSCULOSKELETAL: No joint swelling or deformity. EXTREMITIES: No cyanosis, clubbing, or pedal edema. NEUROLOGICAL: Gross neurological examination did not reveal any focal deficits. SKIN: No rashes. Assessment and plan C5-C7 spondylosis with severe bilateral foraminal stenosis status post C4-C7 Anterior Cervical Discectomy and Fusion Grade 1 anterolisthesis C7-T1 Bilateral cervical radiculopathy with progressive weakness Cervical myelopathy symptoms Monitor vital signs Monitor CBC Monitor CMP Continue telemetry monitoring Continue pain management per orthopedics Continue DVT prophylaxis per orthopedics Resume home meds PT and OT consulted Labs and medication were reviewed.. Continue same treatment. Continue with symptomatic treatment. Resume home medication. Monitor labs and vitals. DVT and GI prophylaxis. Further recommendations as per clinical course of the patient Dictation was produced using [employer] dictation software. please excuse any grammatical, word or spelling errors. Past Medical History Past Medical History: No Reported History Additional Past Medical History / Comment(s): neck pain several years since inju ry in [place] History of Any Multi-Drug Resistant Organisms: None Reported Past Surgical History: Orthopedic Surgery Additional Past Surgical History / Comment(s): Rt. hand growth removal, Rt. knee arthroscopy, Bilat. CTR, Lt. bone spur removed, nasal surgery Past Anesthesia/Blood Transfusion Reactions: No Reported Reaction Past Psychological History: No Psychological Hx Reported Smoking Status: Never smoker Past Alcohol Use History: Rare Additional Past Alcohol Use History / Comment(s): 2 beers/year Past Drug Use History: None Reported - Past Family History Brother(s) Family Medical History: Diabetes Mellitus, Dialysis Sister(s) Additional Family Medical History / Comment(s): 3 sisters have (1 in 40's, 2 in 60's) Medications and Allergies Home Medications Medication Instructions Recorded Confirmed Type Aspirin EC [Ecotrin Low Dose] 81 mg PO DAILY 02/12/18 09/29/24 History Loratadine 10 mg PO HS 02/12/18 09/29/24 History Alpha Lipoic Acid 200 mg PO DAILY 09/29/24 09/29/24 History Calcium Carb/Mag Ox/Zinc Sulf 1 tab PO DAILY 09/29/24 09/29/24 History [Afv-Ffp-Byaa 334-134-5 mg Tab] Cholecalciferol [Vitamin D3 (25 1 tab PO DAILY 09/29/24 09/29/24 History Mcg = 1000 Iu)] Cyanocobalamin (Vitamin B-12) 1 tab PO DAILY 09/29/24 09/29/24 History [Vitamin B-12] Allergies Allergy/AdvReac Type Severity Reaction Status Date / Time egg Allergy Rash/Hives Verified 10/03/24 05:11 UNKNOWN ANTIBIOITIC Allergy Rash/Hives Uncoded 10/02/24 11:03 Physical Exam Vitals: Vital Signs Temp Pulse Resp BP Pulse Ox 10/03/24 07:19 97.9 F 85 19 119/77 95 10/02/24 21:09 77 134/72 96 10/02/24 20:54 77 135/76 94 L 10/02/24 20:39 74 138/74 95 10/02/24 20:24 80 133/78 95 10/02/24 20:09 80 132/76 94 L 10/02/24 19:54 77 130/77 97 10/02/24 19:40 82 145/74 95 10/02/24 19:25 83 142/73 95 10/02/24 19:09 79 144/76 97 10/02/24 18:54 97.6 F 75 149/81 96 10/02/24 18:39 84 152/79 97 10/02/24 18:30 97.6 F 82 17 152/79 96 10/02/24 18:00 73 16 120/72 95 10/02/24 17:37 82 14 136/72 96 10/02/24 17:22 84 14 113/66 96 10/02/24 17:07 79 14 130/69 95 10/02/24 16:52 85 14 112/62 95 10/02/24 16:37 86 14 109/63 96 10/02/24 16:22 82 14 90/53 96 10/02/24 16:07 79 14 93/49 95 10/02/24 15:52 97.4 F L 70 14 95/57 95 10/02/24 11:16 97.8 F 82 16 169/82 98 Intake and Output 10/02/24 10/03/24 10/03/24 22:59 06:59 14:59 Intake Total 500 1080 Output Total 200 1550 Balance 300 -470 Intake: IV 500 Oral 1080 Output: Urine 150 1550 Estimated Blood Loss 50 Other: Voiding Method Indwelling Catheter Weight 99 kg Results CBC & Chem 7: 10/03/24 04:33 10/03/24 04:33 Labs: Abnormal Lab Results - Last 24 Hours (Table) 10/03/24 Range/Units 04:33 WBC 15.07 H (4.50-10.00) X 10*3/uL RBC 4.20 L (4.40-5.60) X 10*6/uL MCH 32.4 H (27.0-32.0) pg Immature Gran # 0.11 H (0.00-0.04) X 10*3/uL Neutrophils # 12.92 H (1.80-7.70) X 10*3/uL Lymphocytes # 0.73 L (0.90-5.00) X 10*3/uL Monocytes # 1.28 H (0.20-1.00) X 10*3/uL Eosinophils # 0 L (0.04-0.35) X 10*3/uL
[2024-10-03 13:59] VITALS: BP 153/76; RESP 18; TEMP 97.8
--- NOTE | 2024-10-03 17:08 | P.DS ---
Providers Date of admission: 10/02/2024 Expected date of discharge: 10/03/24 Attending physician: Gaurang Stovall DO Consults: 10/02/24 16:02 Consult Physician Routine Consulting Provider: Lashaun Lira Consult Reason/Comments: Medical Management s/p C3-C7 ACDF Do you want consulting provider notified?: Yes Primary care physician: [facility] Course: Date of admission: 10/02/2024 Date of discharge: 10/03/2024 Admission diagnosis: 1. 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 UE RADICULOPATHY 3. UE WEAKNESS 4. NECK PAIN Discharge diagnosis: Same Attending physician: Dr. Stovall Surgical procedures: C4C7 ACDF Brief history: Patient is a 74-year-old male with a history of C4-7 spondylosis severe with severe stenosis; upper extremity radiculopathy and weakness; neck pain. At this point patient has failed conservative treatment measures and has opted to proceed with a elective C4-C7 ACDF. Hospital course: Details of patient's surgery can be found in operative report. Patient tolerated the procedure well and was subsequently transported to orthopedic floor. Patient's orthopeidc and medical care was provided daily. Patient had daily laboratory tests performed for evaluation of overall blood counts. Patient had daily physical therapy to include strengthening range of motion as well as education with walker ambulation. Patient was noted to have a relatively uneventful postoperative course. Patient reported satisfactory pain control with oral pain medications by postoperative day 1. Patient showed satisfactory progress with physical therapy. Patient moved steadily through the program and had no difficulty meeting the goals by postoperative day 1. Given patient's otherwise satisfactory course and having met physical therapy goals, plan is to discharge patient home on postoperative day 1. Discharge condition/disposition: Patient will be discharged home in stable condition. Discharge medications: Instructions are given on resumption of patient's normal daily medications per primary care recommendation, in addition patient will be prescribed [place]; Flexeril; Duricef; senna. Spine Discharge and Recovery Instructions Date of Surgery: 10/02/2024 Diagnosis: moderate to severe spondylotic changes C5-C7, multilevel foraminal stenosis (severe at C5-6 and C6-7); grade 1 anterolisthesis C7-T1. Procedure: C3-C7 ACDF Medications: See medication list All medication refills should be obtained through your primary care doctor or your clinic spine surgeon. Please discuss prescription refills at your follow up appointment. Do not call the hospital for medication refills. Dressing: Leave your dressing in place for a total of 5 days post operatively. Then you may remove your dressing and leave open to air. Keep the area clean and if not able to keep area clean, then cover with sterile gauze and tape. Showering: You may shower 3 days after your procedure allowing soap and water to run over incision. Do not scrub. Do not soak. Blot dry. Follow up: Please confirm a follow up appointment with your surgeon 3 weeks post operatively. Please make an appointment to follow up with your PCP in 1-2 weeks after surgery for evaluation '3 phase, 3-week plan' POST OP WEEKS 1-3 1. Lifting/carrying/pushing/pulling limited to less than 5 pounds. 2. Do not sit for longer than 15 minutes at one time. Get up and walk around. Prolonged sitting is NOT advised. If you lay down, see if you can tolerate laying down on you front (belly side) 3. Walk for periods of 15 minutes = 1 mile but no longer; do it multiple times times each day. 4. Ice your low back after activity. POST OP WEEKS 3-6 1. Lifting limited to less than 20 pounds. 2. Do not sit for longer than 30 minutes at a time. Frequently change positions. Use a sit-to stand workstation or take frequent breaks from sitting if you have returned to work. 3. Walk for 30 minutes each day. If possible, do these three or more times a day POST OP WEEKS 6+ At your 6-week appointment we will give you a physical therapy referral to focus on a core stabilization and strengthening program. You should also work on leg & buttock strengthening, hamstring & quadriceps stretching, and continue a low impact aerobic activity program such as swimming, walking, or riding a stationary bicycle. During the initial 6 weeks after your surgery, you are at the highest risk of re-injuring your spine. You should generally avoid BLT's (bending, lifting and twisting combination motions) and follow the above guidelines to reduce the chance of reinjury. You can anticipate post op appointments in our office at approximately 3 weeks and 6 weeks after your surgery. INCISION CARE: If your incision is not draining you do NOT need to cover it with a dressing. Keep your incision clean, dry and intact. In most cases, we apply skin glue, karen or sutures to the incision at the time of surgery. This will be like a crust or have the appearance of a scab and will fall off in time on its own. The stitches or karen need to be removed at 3 weeks post op appointment. You may begin to shower 3 days after surgery (this allows the glue to sifuentes well). However, please avoid scrubbing the incision site or peeling off any of the skin glue. This will ensure optimal healing of your incision. Also, during this time avoid soaking the incision area in water - this includes swimming pools, hot tubs or baths. No ointments, lotions or oils on the incision until your surgeon allows. Leave karen, sutures or glue in place. Neurological dysfunction that comes on suddenly can also be a sign of a stroke. Below some common symptoms of a stroke are listed: B - balance difficulty such as sudden onset walking or leaning to one side - NEW E - eye problem such as sudden double vision or trouble seeing on one side - NEW F - Facial weakness or numbness on one side - NEW A - Arm or leg weakness or numbness on one side - NEW S - Slurred speech or difficulty with word finding - NEW T - Time is BRAIN! Call 911 as soon as you recognize these symptoms Diet: Consume a regular diet rich in vegetables and lean protein such as chicken or fish. You should consume in a ratio of approximately 20% fats|40% carbohydrates|40%protein. Vegetables, sweet potatoes, brown rice or quinoa are examples of good carbohydrates. Chips, white bread, cookies and sweets/sugar are examples of bad carbohydrates. Limit your bad carbs, go wild with good carbs. "Life's Simple 7" Guidelines as per [place] [employer] These will help you reclaim your life after surgery and vessel scrapper helper in your recovery, keeping in mind your restrictions. (1) Get Active. Physical activity can help people lose weight, control high blood pressure and cholesterol, feel emotionally better, and sleep better. (2) Control Cholesterol. Avoid a diet high in saturated fat, trans fat, & cholesterol. Limit whole milk & cream, ice cream, butter, egg yolks, processed meats (like sausage and hot dogs), and fatty meats. Choose healthy foods that are low in saturated fat, trans fat and cholesterol which include: Fruits and vegetables, fiber rich grain products (like whole grain pasta and brown rice), lean meat such as chicken, fish, nuts, seeds, and legumes. (3) Eat Better. Eat small portions. Shop at the grocery with a list and do not stray from it. Tips for a healthy diet include: Limit sodium intake to less than 1500mg daily, avoid prepackaged, processed, and fast foods, choose a diet rich in fruits, vegetables, and whole grain, high fiber foods, and limit saturated & cholesterol in your diet. (4) Manage Blood Pressure. If you have high blood pressure, you should have a cuff at home so that you can check your blood pressure regularly. Be sure you have a good cuff. An arm one is generally better than a wrist one. Bring the cuff to a doctor's appointment to validate that the measurements that your cuff are taking are accurate. Take your blood pressure twice daily when you are sitting down and relaxing. Record the numbers in a log and bring this log with you to your doctors' appointments. (5) Lose Weight if your BMI is above 25. A healthy BMI is between 19-25. To calculate Your BMI, you may use a Standard BMI Calculator on the NIH BMI website: <www.nhlbi.nih.gov/guidelines/obesity/BMI/bmicalc.htm>. Weigh oneself daily. If you are overweight, set a goal to lose weight. A pound a week loss if needed is a good target. (6) Reduce Blood Sugar. Limit foods and liquids with "added sugars." (Added sugars include sucrose, fructose, glucose, maltose, dextrose, high fructose corn syrup, corn syrup, concentrated fruit juice and honey). (7) Stop Smoking. If you smoke, quitting smoking is one of the best things that you can do for your health. Smoking increases your risk of heart attack, stroke, and peripheral vascular disease, which is a build-up of plaque in your arteries. Please discard all the cigarettes and lighters in your house. Have a plan for what you will do when you have the urge to smoke. Direct and second- hand smoke shortens your life as well as the lives of your family, friends and others around you. For your health and the health of those around you, please consider quitting! Proper Bending Body Mechanics: Maintain a wide stance with one foot slightly in front of the other. Keep your back straight. Bend utilizing the strength in your hips and knees. Do not bend at the waist. Maintain the lifted object at your waist-level close to your body. Avoid lifting weight that causes immediately pain or pain anywhere in the body afterwards. Smoking/Nicotine If there was ever one thing that you could do to increase your overall health, decrease your risk of cardiovascular problems by about 39% the second you make the choice, it is to STOP SMOKING. Your body's most instant gratification is the second you stop smoking. We have all heard the studies, read the articles but it is true, smoking is extremely bad for your overall health, and moreover it is detrimental to your bone health. Nicotine, IN ANY FORM, kills bone cells, prevents your body from healing fractures, and significantly prolongs healing after surgery. In spine surgery specifically, it increases your risk of not healing your bones to create a fusion and increases your risk of having a revision surgery due to this up to 60%. I know it is hard. I know it feels impossible. But there are ways. Take control of your life. We are here to help you through it. And when you are ready, ask us and we can direct you to help if you desire. Use the START Plan to Quit Smoking (please visit the Helpguide.org website list ed below for more information): S = Set a quit date. Choose a date within the next 2 weeks, so you have enough time to prepare without losing your motivation to quit. If you mainly smoke at work, quit on the weekend, so you have a few days to adjust to the change. T = Tell family, friends, and co-workers that you plan to quit. Let your friends and family in on your plan to quit smoking and tell them you need their support and encouragement to stop. Look for a quit lobo who wants to stop smoking as well. You can help each other get through the rough times. A = Anticipate and plan for the challenges you'll face while quitting. Most people who begin smoking again do so within the first 3 months. You can help yourself make it through by preparing ahead for common challenges, such as nicotine withdrawal and cigarette cravings. R = Remove cigarettes and other tobacco products from your home, car, and work. Throw away all your cigarettes (no emergency pack!), lighters, ashtrays, and matches. Wash your clothes and freshen up anything that smells like smoke. Shampoo your car, clean your drapes and carpet, and steam your furniture. T = Talk to your doctor about getting help to quit. Your doctor can prescribe medication to help with withdrawal and suggest other alternatives. If you can't see a doctor, you can get many products over the counter at your local pharmacy or grocery store, including the nicotine patch, nicotine lozenges, and nicotine gum. Resources for Quitting Smoking: <https://www.[place].gov/documents/[facility]/Quit_Tobacco_Resources _for_patients_313480_7.pdf> Supplementation: Take recommended dosages of Vitamin D and Calcium to help fortify your bones and help them to heal. See your health maintenance packet for dosages and recommended levels. DVT/VTE prophylaxis: You will be given compression stockings from the hospital. Wear these daily for the first two weeks after surgery. You may take them off at night. You may be prescribed a medication to help thin your blood. Take this as directed. If you are not prescribed this medication, early and frequent ambulation has been shown to be the best prophylaxis to deep vein thrombosis and sequelae related to this event. Assessment: 1. 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 UE RADICULOPATHY 3. UE WEAKNESS 4. NECK PAIN Procedures: C4-C7 ACDF Patient Condition at Discharge: Good Plan - Discharge Summary Discharge Rx Participant: No New Discharge Prescriptions: New Cyclobenzaprine [Flexeril] 5 mg PO TID #21 tablet HYDROcodone/APAP 5-325MG [[place] 5-325] 1 tab PO Q6HR PRN #28 tab PRN Reason: Pain Sennosides/Docusate Sodium [Senna Plus 8.6-50 mg Softgel] 1 each PO DAILY #20 capsule cefaDROXiL [Duricef] 500 mg PO Q12HR 5 Days #10 cap Continue Aspirin EC [Ecotrin Low Dose] 81 mg PO DAILY Loratadine 10 mg PO HS Cyanocobalamin (Vitamin B-12) [Vitamin B-12] 1 tab PO DAILY Calcium Carb/Mag Ox/Zinc Sulf [Olk-Odf-Fksx 334-134-5 mg Tab] 1 tab PO DAILY Cholecalciferol [Vitamin D3 (25 Mcg = 1000 Iu)] 1 tab PO DAILY Alpha Lipoic Acid 200 mg PO DAILY Discharge Medication List Aspirin EC [Ecotrin Low Dose] 81 mg PO DAILY 02/12/18 [History] Loratadine 10 mg PO HS 02/12/18 [History] Alpha Lipoic Acid 200 mg PO DAILY 09/29/24 [History] Calcium Carb/Mag Ox/Zinc Sulf [Rkz-Rlh-Bvpn 334-134-5 mg Tab] 1 tab PO DAILY 09/29/24 [History] Cholecalciferol [Vitamin D3 (25 Mcg = 1000 Iu)] 1 tab PO DAILY 09/29/24 [History] Cyanocobalamin (Vitamin B-12) [Vitamin B-12] 1 tab PO DAILY 09/29/24 [History] Cyclobenzaprine [Flexeril] 5 mg PO TID #21 tablet 10/03/24 [Rx] HYDROcodone/APAP 5-325MG [[place] 5-325] 1 tab PO Q6HR PRN #28 tab 10/03/24 [Rx] Sennosides/Docusate Sodium [Senna Plus 8.6-50 mg Softgel] 1 each PO DAILY #20 capsule 10/03/24 [Rx] cefaDROXiL [Duricef] 500 mg PO Q12HR 5 Days #10 cap 10/03/24 [Rx] Follow up Appointment(s)/Referral(s): Gaurang Stovall DO [Doctor of Osteopathic Medicine] - 2 Weeks Patient Instructions/Handouts: Anterior Cervical Discectomy (GEN) Activity/Diet/Wound Care/Special Instructions: Spine Discharge and Recovery Instructions Date of Surgery: 10/02/2024 Diagnosis: moderate to severe spondylotic changes C5-C7, multilevel foraminal stenosis (severe at C5-6 and C6-7); grade 1 anterolisthesis C7-T1. Procedure: C3-C7 ACDF Medications: See medication list All medication refills should be obtained through your primary care doctor or your clinic spine surgeon. Please discuss prescription refills at your follow up appointment. Do not call the hospital for medication refills. Dressing: Leave your dressing in place for a total of 5 days post operatively. Then you may remove your dressing and leave open to air. Keep the area clean and if not able to keep area clean, then cover with sterile gauze and tape. Showering: You may shower 3 days after your procedure allowing soap and water to run over incision. Do not scrub. Do not soak. Blot dry. Follow up: Please confirm a follow up appointment with your surgeon 3 weeks post operatively. Please make an appointment to follow up with your PCP in 1-2 weeks after surgery for evaluation '3 phase, 3-week plan' POST OP WEEKS 1-3 1. Lifting/carrying/pushing/pulling limited to less than 5 pounds. 2. Do not sit for longer than 15 minutes at one time. Get up and walk around. Prolonged sitting is NOT advised. If you lay down, see if you can tolerate laying down on you front (belly side) 3. Walk for periods of 15 minutes = 1 mile but no longer; do it multiple times times each day. 4. Ice your low back after activity. POST OP WEEKS 3-6 1. Lifting limited to less than 20 pounds. 2. Do not sit for longer than 30 minutes at a time. Frequently change positions. Use a sit-to stand workstation or take frequent breaks from sitting if you have returned to work. 3. Walk for 30 minutes each day. If possible, do these three or more times a day POST OP WEEKS 6+ At your 6-week appointment we will give you a physical therapy referral to focus on a core stabilization and strengthening program. You should also work on leg & buttock strengthening, hamstring & quadriceps stretching, and continue a low impact aerobic activity program such as swimming, walking, or riding a stationary bicycle. During the initial 6 weeks after your surgery, you are at the highest risk of re-injuring your spine. You should generally avoid BLT's (bending, lifting and twisting combination motions) and follow the above guidelines to reduce the chance of reinjury. You can anticipate post op appointments in our office at approximately 3 weeks and 6 weeks after your surgery. INCISION CARE: If your incision is not draining you do NOT need to cover it with a dressing. Keep your incision clean, dry and intact. In most cases, we apply skin glue, karen or sutures to the incision at the time of surgery. This will be like a crust or have the appearance of a scab and will fall off in time on its own. The stitches or karen need to be removed at 3 weeks post op appointment. You may begin to shower 3 days after surgery (this allows the glue to sifuentes well). However, please avoid scrubbing the incision site or peeling off any of the skin glue. This will ensure optimal healing of your incision. Also, during this time avoid soaking the incision area in water - this includes swimming pools, hot tubs or baths. No ointments, lotions or oils on the incision until your surgeon allows. Leave karen, sutures or glue in place. Neurological dysfunction that comes on suddenly can also be a sign of a stroke. Below some common symptoms of a stroke are listed: B - balance difficulty such as sudden onset walking or leaning to one side - NEW E - eye problem such as sudden double vision or trouble seeing on one side - NEW F - Facial weakness or numbness on one side - NEW A - Arm or leg weakness or numbness on one side - NEW S - Slurred speech or difficulty with word finding - NEW T - Time is BRAIN! Call 911 as soon as you recognize these symptoms Diet: Consume a regular diet rich in vegetables and lean protein such as chicken or fish. You should consume in a ratio of approximately 20% fats|40% carbohydrates|40%protein. Vegetables, sweet potatoes, brown rice or quinoa are examples of good carbohydrates. Chips, white bread, cookies and sweets/sugar are examples of bad carbohydrates. Limit your bad carbs, go wild with good carbs. "Life's Simple 7" Guidelines as per [place] [employer] These will help you reclaim your life after surgery and vessel scrapper helper in your recovery, keeping in mind your restrictions. (1) Get Active. Physical activity can help people lose weight, control high blood pressure and cholesterol, feel emotionally better, and sleep better. (2) Control Cholesterol. Avoid a diet high in saturated fat, trans fat, & cholesterol. Limit whole milk & cream, ice cream, butter, egg yolks, processed meats (like sausage and hot dogs), and fatty meats. Choose healthy foods that are low in saturated fat, trans fat and cholesterol which include: Fruits and vegetables, fiber rich grain products (like whole grain pasta and brown rice), lean meat such as chicken, fish, nuts, seeds, and legumes. (3) Eat Better. Eat small portions. Shop at the grocery with a list and do not stray from it. Tips for a healthy diet include: Limit sodium intake to less than 1500mg daily, avoid prepackaged, processed, and fast foods, choose a diet rich in fruits, vegetables, and whole grain, high fiber foods, and limit saturated & cholesterol in your diet. (4) Manage Blood Pressure. If you have high blood pressure, you should have a cuff at home so that you can check your blood pressure regularly. Be sure you have a good cuff. An arm one is generally better than a wrist one. Bring the cuff to a doctor's appointment to validate that the measurements that your cuff are taking are accurate. Take your blood pressure twice daily when you are sitting down and relaxing. Record the numbers in a log and bring this log with you to your doctors' appointments. (5) Lose Weight if your BMI is above 25. A healthy BMI is between 19-25. To calculate Your BMI, you may use a Standard BMI Calculator on the NIH BMI website: <www.nhlbi.nih.gov/guidelines/obesity/BMI/bmicalc.htm>. Weigh oneself daily. If you are overweight, set a goal to lose weight. A pound a week loss if needed is a good target. (6) Reduce Blood Sugar. Limit foods and liquids with "added sugars." (Added sugars include sucrose, fructose, glucose, maltose, dextrose, high fructose corn syrup, corn syrup, concentrated fruit juice and honey). (7) Stop Smoking. If you smoke, quitting smoking is one of the best things that you can do for your health. Smoking increases your risk of heart attack, stroke, and peripheral vascular disease, which is a build-up of plaque in your arteries. Please discard all the cigarettes and lighters in your house. Have a plan for what you will do when you have the urge to smoke. Direct and second- hand smoke shortens your life as well as the lives of your family, friends and others around you. For your health and the health of those around you, please consider quitting! Proper Bending Body Mechanics: Maintain a wide stance with one foot slightly in front of the other. Keep your back straight. Bend utilizing the strength in your hips and knees. Do not bend at the waist. Maintain the lifted object at your waist-level close to your body. Avoid lifting weight that causes immediately pain or pain anywhere in the body afterwards. Smoking/Nicotine If there was ever one thing that you could do to increase your overall health, decrease your risk of cardiovascular problems by about 39% the second you make the choice, it is to STOP SMOKING. Your body's most instant gratification is the second you stop smoking. We have all heard the studies, read the articles but it is true, smoking is extremely bad for your overall health, and moreover it is detrimental to your bone health. Nicotine, IN ANY FORM, kills bone cells, prevents your body from healing fractures, and significantly prolongs healing after surgery. In spine surgery specifically, it increases your risk of not healing your bones to create a fusion and increases your risk of having a revision surgery due to this up to 60%. I know it is hard. I know it feels impossible. But there are ways. Take control of your life. We are here to help you through it. And when you are ready, ask us and we can direct you to help if you desire. Use the START Plan to Quit Smoking (please visit the [employer] website listed below for more information): S = Set a quit date. Choose a date within the next 2 weeks, so you have enough time to prepare without losing your motivation to quit. If you mainly smoke at work, quit on the weekend, so you have a few days to adjust to the change. T = Tell family, friends, and co-workers that you plan to quit. Let your friends and family in on your plan to quit smoking and tell them you need their support and encouragement to stop. Look for a quit lobo who wants to stop smoking as well. You can help each other get through the rough times. A = Anticipate and plan for the challenges you'll face while quitting. Most people who begin smoking again do so within the first 3 months. You can help yourself make it through by preparing ahead for common challenges, such as nicotine withdrawal and cigarette cravings. R = Remove cigarettes and other tobacco products from your home, car, and work. Throw away all your cigarettes (no emergency pack!), lighters, ashtrays, and matches. Wash your clothes and freshen up anything that smells like smoke. Shampoo your car, clean your drapes and carpet, and steam your furniture. T = Talk to your doctor about getting help to quit. Your doctor can prescribe medication to help with withdrawal and suggest other alternatives. If you can't see a doctor, you can get many products over the counter at your local pharmacy or grocery store, including the nicotine patch, nicotine lozenges, and nicotine gum. Resources for Quitting Smoking: <https://www.[place].gov/documents/md gudino/Quit_Tobacco_Resources_for_patients_313480_7.pdf> Supplementation: Take recommended dosages of Vitamin D and Calcium to help fortify your bones and help them to heal. See your health maintenance packet for dosages and recommended levels. DVT/VTE prophylaxis: You will be given compression stockings from the hospital. Wear these daily for the first two weeks after surgery. You may take them off at night. You may be prescribed a medication to help thin your blood. Take this as directed. If you are not prescribed this medication, early and frequent ambulation has been shown to be the best prophylaxis to deep vein thrombosis and sequelae related to this event. Discharge Disposition: HOME SELF-CARE
--- NOTE | 2024-10-03 17:13 | P.PN ---
Subjective Progress Note Date: 10/03/24 Principal diagnosis: 1. 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 UE RADICULOPATHY 3. UE WEAKNESS 4. NECK PAIN Patient was seen at bedside this afternoon with family member present during encounter. He did have hard c-collar in place and dressing and drain present over the anterior cervical spine. Patient says the pain has been well- controlled since surgery yesterday. He says he has urinated several times since surgery without issue. Patient says he has been walking around the room without issue as well. He says he is looking forward to going home. Patient denies any other orthopedic complaints at this time. Objective - Vital Signs Vital signs: Vital Signs Temp 97.8 F 10/03/24 12:47 Pulse 85 10/03/24 12:47 Resp 18 10/03/24 12:47 BP 153/76 10/03/24 12:47 Pulse Ox 97 10/03/24 12:47 FiO2 Intake & Output 10/02/24 10/03/24 10/03/24 18:59 06:59 18:59 Intake Total 1250 1080 Output Total 200 1550 25 Balance 1050 -470 -25 Weight 99 kg 99 kg Intake: IV 1250 Oral 1080 Output: Drainage 25 Neck 25 Urine 150 1550 Estimated Blood Loss 50 Other: Voiding Method Indwelling Catheter Toilet # Voids 2 - Exam Hard c-collar is in place over the cervical spine as well as dressing and drain present over the anterior cervical spine. Dressing was removed as well as drain. New dressing placed over incision. Incision appears to be healing well. Negative for any active drainage. There is some generalized tenderness palpation over the anterior cervical spine near incision. Nontender to palpation on rest of exam. C5-C7 dermatomal deficits bilaterally in the upper extremities. Sensation is equal, symmetric, by intact throughout the rest of the extremities. Patient does have similar range of motion in the bilateral upper extremities and the shoulder secondary to recent surgery and stiffness and pain in the neck. Patient does have full range of motion throughout the bilateral elbows and wrist on exam. Patient does have good range of motion t hroughout the bilateral lower extremities on exam. 4-/5 in all major motor groups in bilateral upper extremities. 4+/5 in all major motor groups in bilateral lower extremities. Negative Homans bilaterally. Negative clonus bilaterally. DP pulse palpable bilaterally. Radial pulses palpable bilate rally. Cap refill under 3 seconds in digits of upper extremities. - Labs CBC & Chem 7: 10/03/24 04:33 10/03/24 04:33 Labs: Abnormal Lab Results - Last 24 Hours (Table) 10/03/24 10/03/24 Range/Units 04:33 04:33 WBC 15.07 H (4.50-10.00) X 10*3/uL RBC 4.20 L (4.40-5.60) X 10*6/uL MCH 32.4 H (27.0-32.0) pg Immature Gran # 0.11 H (0.00-0.04) X 10*3/uL Neutrophils # 12.92 H (1.80-7.70) X 10*3/uL Lymphocytes # 0.73 L (0.90-5.00) X 10*3/uL Monocytes # 1.28 H (0.20-1.00) X 10*3/uL Eosinophils # 0 L (0.04-0.35) X 10*3/uL Glucose 126 H (70-110) mg/dL Calcium 8.3 L (8.7-10.3) mg/dL Assessment and Plan Assessment: 1. 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 UE RADICULOPATHY 3. UE WEAKNESS 4. NECK PAIN -Postop day 1 status post C4-C7 ACDF Plan: 1. 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 Patient stable at bedside this morning. Drain and dressing changed at bedside this m orning. Incision appears to be healing well. Negative for any active drainage. New dressing placed over incision. Discharge home today with home care.2 2. Appreciate medical management 3. Pain management -Tylenol; Flexeril; Teague 4. GI prophylaxis -senna 5. DVT prophylaxis-mechanical 6 PT/OT -hard c-collar on at all times. Weightbearing as tolerated. 7. Encourage incentive spirometer use 8. Discharge planning -home today with home care Time with Patient: Less than 30
[2024-10-03] MEDS ORDERED: LORATADINE 10 MG TAB PO SCH (21:00)
[2024-10-04] MEDS ORDERED: CYANOCOBALAMIN 500 MCG TAB PO SCH (09:00)
[2024-10-04] MEDS ORDERED: NON FORMULARY DRUG (Calcium Carb/Mag Ox/Zinc Sulf [Cal-Mag-Zinc 334-134-5 Mg Tab] 1 EACH T PO SCH (09:00)
[2024-10-04] MEDS ORDERED: CHOLECALCIFEROL 25 MCG (1000 IU) TABLET PO SCH (09:00)
== END 2024-10-03 18:43 | disposition home or self-care (01) ==
LOC: OR 10:42 → 4SSUR 15:52 → OR 10-03 18:43
PROVIDERS: ATTEND Orthopaedic Surgery
DX: M47.22 Other spondylosis with radiculopathy, cervical region (principal); M50.121 Cervical disc disorder at C4-C5 level with radiculopathy; M48.02 Spinal stenosis, cervical region; M43.13 Spondylolisthesis, cervicothoracic region; Z79.82 Long term (current) use of aspirin; Z79.899 Other long term (current) drug therapy; Z91.012 Allergy to eggs
CPT/HCPCS: 22551; 22552 ×2; 22853 ×3; 22845; 20930; 20936; 72040; J1100; J0690; J2405; J2371; 72125; 80048; 85025